=== PATIENT | male | born 2000 | race Caucasian/White ===

== ENCOUNTER → 2024-01-09 06:29 | Day surgery (SDC) | payer BC, SELFPAY | LOC: GI 06:29 | PROVIDERS: ATTENDING PHYSICIAN Internal Medicine | DX: Z13.810 Encounter for screening for upper gastrointestinal disorder (principal); K22.89 Other specified disease of esophagus; K44.9 Diaphragmatic hernia without obstruction or gangrene | CPT/HCPCS: 43239; 88305 ==